=== PATIENT | male | born 1970 | race Hispanic/Latino ===

== ENCOUNTER 2019-08-28 10:27 | Observation (INO) | payer BC ==
[~2019-08-28] VITALS: Ht 170.2 cm; Wt 91.6 kg
[2019-08-28] MEDS ORDERED: LIPITOR20 MG PO (10:39)
[2019-08-28] MEDS ORDERED: TERBINAFINE HC250 MG PO (10:39)
--- NOTE | 2019-08-28 22:32 | EKG ---
[facility] [address] [address] [place], [place] [address] Signed Normal sinus rhythm Normal ECG No previous ECGs available Confirmed by JANIA POSADA MD ([id number]) on 08/28/2019 10:32:34 PM Electronically Signed By: JANIA POSADA MD 08/28/192231 PATIENT NAME: CHRISSIE EMMANUEL Electrocardiogram DATE OF : 70 PHYSICIAN: JANIA POSADA MD REPORT #: [id number] REPORT IS CONFIDENTIAL AND NOT TO BE RELEASED WITHOUT AUTHORIZATION
[2019-08-29] MEDS ORDERED: ASPIRIN325 MG PO (10:37)
== END 2019-08-29 14:45 | disposition home or self-care (01) ==
LOC: ED 10:27 → MS 10:29
PROVIDERS: ADMIT Internal Medicine
DX: R26.2 Difficulty in walking, not elsewhere classified (principal); R20.8 Other disturbances of skin sensation; R53.1 Weakness; E78.00 Pure hypercholesterolemia, unspecified; R29.700 NIHSS score 0; J38.01 Paralysis of vocal cords and larynx, unilateral; Z79.899 Other long term (current) drug therapy
CPT/HCPCS: 36415; 70450; 70496; 70498; 70551; 71045; 80053; 83735; 84439; 84443; 84484; 85025; 85610; 85651; 85730; 92610; 93005; 93010; 97165; 99285-25; G0378; J7030; Q9967

== ENCOUNTER 2020-11-15 20:22 | Emergency (ER) | payer BC ==
[~2020-11-15] VITALS: Ht 170.2 cm; Wt 91.6 kg
[~2020-11-15 20:22] MED LIST: ASPIRIN325 MG PO; LIPITOR20 MG PO; TERBINAFINE HC250 MG PO
[2020-11-15] MEDS ORDERED: VALACYCLOVIR1000 MG PO (21:08)
--- OUTSIDE RECORDS SUMMARY | 2020-11-15 21:32 | XMS ---
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 E.DGwendolyn VISIT COUNT (12 MO.) 1 APPLE [facility]o TOTAL 1 NOTE: Visits indicate total known visits. ED/UCC VISIT TRACKING (12 MO.) 11/15/2020 20:23 APPLE [facility] OR TYPE: Emergency COMPLAINT: - TESTICULAR PROBLEM INPATIENT VISIT TRACKING (12 MO.) No inpatient visits to display in this time frame [email or web address]
== END 2020-11-15 21:29 | disposition home or self-care (01) ==
LOC: ED 20:22
DX: A60.01 Herpesviral infection of penis (principal); E78.00 Pure hypercholesterolemia, unspecified; Z79.82 Long term (current) use of aspirin
CPT/HCPCS: 99283